=== PATIENT | male | born 1995 | race Caucasian/White ===

== ENCOUNTER 2020-07-18 08:32 | Emergency (ER) | payer OTHER ==
[~2020-07-18] VITALS: Ht 175.3 cm; Wt 68.3 kg
[2020-07-18] MEDS ORDERED: PROPARACAINE 0.5% OPHTH SOL 15ML XX ONE (08:45)
[2020-07-18] MEDS ORDERED: FLUORESCEIN OPHTH 1 MG STRIP XX ONE (08:45)
[2020-07-18] MEDS ORDERED: TETRACAINE 0.5% OPHTH SOLN 4ML OD ONE (09:05)
[2020-07-18] MEDS ORDERED: ACETAMINOPHEN 500 MG TAB PO ONE (09:30)
[2020-07-18] MEDS ORDERED: OPTI0.5D5 OP (11:58)
[2020-07-18] MEDS ORDERED: OFLO3OPSO OS (11:58)
[2020-07-18 12:04] VITALS: BP 130/70
== END 2020-07-18 12:05 | disposition home or self-care (01) ==
LOC: M ED 08:32
DX: H18.832 Recurrent erosion of cornea, left eye (principal)

== ENCOUNTER 2020-07-25 11:55 | Emergency (ER) | payer OTHER ==
[~2020-07-25] VITALS: Ht 175.3 cm; Wt 68.6 kg
[~2020-07-25 11:55] MED LIST: OFLO3OPSO OS; OPTI0.5D5 OP
[2020-07-25] MEDS ORDERED: IBUP200C25 PO (12:05)
[2020-07-25] MEDS ORDERED: MOXI0.5S (12:05)
[2020-07-25] MEDS ORDERED: FLUO1OPD (12:06)
[2020-07-25] MEDS ORDERED: ACETAMINOPHEN 325 MG TAB PO ONE (14:40)
[2020-07-25 14:55] VITALS: BP 132/74
== END 2020-07-25 15:05 | disposition home or self-care (01) ==
LOC: M ED 11:55
DX: H18.832 Recurrent erosion of cornea, left eye (principal); F17.220 Nicotine dependence, chewing tobacco, uncomplicated